=== PATIENT | female | born 1975 | race Native Hawaiian/Other Pacific Islander ===

== ENCOUNTER 2016-07-06 20:22 | Emergency (ER) | payer BC ==
[~2016-07-06] VITALS: Ht 170.2 cm; Wt 136.1 kg
[2016-07-06] MEDS ORDERED: ATEN25TA21 PO (20:34)
[2016-07-06] MEDS ORDERED: CELEXA10 MG PO (20:34)
[2016-07-06] MEDS ORDERED: NIFE30TA PO (20:35)
== END 2016-07-06 22:54 | disposition home or self-care (01) ==
LOC: ED 20:22
DX: S00.83XA Contusion of other part of head, initial encounter (principal); S80.02XA Contusion of left knee, initial encounter; S46.901A Unspecified injury of unspecified muscle, fascia and tendon at shoulder and upper arm level, right arm, initial encounter; W18.09XA Striking against other object with subsequent fall, initial encounter; Y92.098 Other place in other non-institutional residence as the place of occurrence of the external cause
CPT/HCPCS: 99283